=== PATIENT | male | born 1995 | race Caucasian/White ===

== ENCOUNTER 2018-05-03 15:07 | Emergency (ER) | payer SELFPAY ==
[~2018-05-03] VITALS: Ht 177.8 cm; Wt 104.5 kg
[2018-05-03 15:20] VITALS: BP 121/74
[2018-05-03] MEDS ORDERED: IBUPROFEN 600MG TABLET PO ONE (15:45)
== END 2018-05-03 17:45 | disposition home or self-care (01) ==
LOC: ER 16:22
DX: S61.212A Laceration without foreign body of right middle finger without damage to nail, initial encounter (principal); W01.0XXA Fall on same level from slipping, tripping and stumbling without subsequent striking against object, initial encounter; Y93.01 Activity, walking, marching and hiking; Y92.89 Other specified places as the place of occurrence of the external cause; Y99.8 Other external cause status
CPT/HCPCS: 12001; 73130; 99284; X7700; Z7610